=== PATIENT | female | born 1975 | race African-American/Black ===

== ENCOUNTER 2020-09-30 16:16 | Emergency (ER) | payer SELFPAY ==
[~2020-09-30] VITALS: Ht 160 cm; Wt 125.0 kg
[2020-09-30 19:19] VITALS: BP 142/75
== END 2020-09-30 21:30 | disposition left against medical advice (07) ==
LOC: ER 16:16
DX: I10 Essential (primary) hypertension (principal); Z53.21 Procedure and treatment not carried out due to patient leaving prior to being seen by health care provider